=== PATIENT | male | born 2000 | race Caucasian/White ===

== ENCOUNTER 2023-01-05 11:28 | Emergency (ER) | payer OTHER ==
[2023-01-05] MEDS ORDERED: Iopamidol-370 76% 500 ML MDV (1 ML CHARGE) ONE (11:51)
== END 2023-01-05 15:20 | disposition home or self-care (01) ==
LOC: ERS 11:28
DX: R10.11 Right upper quadrant pain (principal)
CPT/HCPCS: 71275; Q9967